=== PATIENT | female | born 2000 | race Caucasian/White ===

== ENCOUNTER 2025-03-23 21:24 | Emergency (ER) | payer SELFPAY ==
[~2025-03-23] VITALS: Ht 152.4 cm; Wt 54.4 kg
[2025-03-23 21:55] VITALS: TEMP 98.7
[2025-03-23 22:12] LABS: PLATELET COUNT (AUTO) 194 K/uL (150-450); RED BLOOD CELL COUNT(AUTO) 4.39 MIL/uL (4.0-5.2); RED CELL DISTRIBUTION WIDTH 12.9 % (11.5-15.0); WHITE BLOOD COUNT (AUTO) 6.0 K/uL (4.3-11.0)
[2025-03-23 22:17] LABS: CALCIUM, SERUM 8.8 mg/dL (8.5-10.1); CREATININE 0.6 mg/dL (0.6-1.3); SODIUM SERUM 140.0 mmol/L (136-145); UREA NITROGEN, BLOOD 7.0 mg/dL (7-18)
[2025-03-23 22:24] LABS: APPEARANCE,URINE SLIGHTLY CLOUDY (CLEAR); BLOOD, URINE NEGATIVE Ery/uL (NEGATIVE); LEUKOCYTE ESTERASE ,URINE NEGATIVE (NEGATIVE); NITRITE, URINE NEGATIVE (NEGATIVE); UGLUCOSE NEGATIVE (NEGATIVE)
[2025-03-23] MEDS ORDERED: PENICILLIN G BENZATHINE 2.4 MMU/4 ML ML IM ONE (22:26)
[2025-03-23] MEDS: PENICILLIN G BENZATHINE 2.4 MMU/4 ML ML IM ONE (22:34)
[2025-03-23 22:38] LABS: ADD URINE CULTURE YES; SQUAMOUS EPITHELIAL CELL,UR Many /HPF (None Seen)
[2025-03-23 22:43] LABS: ASPARTATE AMINOTRANSFERASE 9.0 U/L (15-37); PREGNANCY TEST SERUM QUAN 37463.0 mIU/mL (0-6); TOTAL PROTEIN, SERUM 7.8 g/dL (6.4-8.2)
[2025-03-23 23:52] VITALS: BP 117/62; O2SAT 98
== END 2025-03-23 23:53 | disposition home or self-care (01) ==
LOC: ER 21:27
DX: O26.891 Other specified pregnancy related conditions, first trimester (principal); O99.511 Diseases of the respiratory system complicating pregnancy, first trimester; Z3A.01 Less than 8 weeks gestation of pregnancy
CPT/HCPCS: 99285; 76856; 96372; 87804 ×2; 85025; 80048; 87086; 83690; 80076; 81001; 36415; 86850; 84702; J0558